=== PATIENT | female | born 1980 | race Caucasian/White ===

== ENCOUNTER → 2018-11-18 | Outpatient (CLI) | payer BC | LOC: BHSO 09:04 | DX: F33.42 Major depressive disorder, recurrent, in full remission (principal) ==

== ENCOUNTER → 2018-11-30 | Outpatient (CLI) | payer BC | LOC: BHSO 13:56 | DX: F43.21 Adjustment disorder with depressed mood (principal) ==

== ENCOUNTER → 2018-12-14 | Outpatient (CLI) | payer BC | LOC: BHSO 14:08 | DX: F43.22 Adjustment disorder with anxiety (principal) ==

== ENCOUNTER → 2018-12-28 | Outpatient (CLI) | payer BC | LOC: BHSO 14:07 | DX: F43.22 Adjustment disorder with anxiety (principal) ==

== ENCOUNTER → 2019-01-24 | Outpatient (CLI) | payer BC | LOC: BHSO 16:06 | DX: F43.23 Adjustment disorder with mixed anxiety and depressed mood (principal) ==

== ENCOUNTER → 2019-04-28 | Outpatient (CLI) | payer BC | LOC: BHSO 16:01 | DX: F41.1 Generalized anxiety disorder (principal) ==

== ENCOUNTER → 2019-05-27 | Outpatient (CLI) | payer BC | LOC: BHSO 09:01 | DX: F41.1 Generalized anxiety disorder (principal) ==